=== PATIENT | male | born 1950 | race Caucasian/White ===

== ENCOUNTER 2024-06-08 07:05 | Inpatient (IN) ==
[2024-06-08] MEDS ORDERED: Iohexol 350 (CONTRAST) 200 ML MDV IV ONE (07:12)
[2024-06-08] MEDS ORDERED: nitroGLYCERIN DRIP 25,000 MCG/250 ML BTL ONE (07:12)
[2024-06-08] MEDS ORDERED: Heparin 1,000 UNIT/ML 10 ml (10,000 UNITS) CATHLAB/DIALYSIS ONE (07:12)
[2024-06-08] MEDS ORDERED: VERAPAMIL 2.5 MG/ML 2 ML VIAL ** 5 mg/2 ml ONE (07:12)
[2024-06-08] MEDS ORDERED: Lidocaine 1% MPF 5 ML VIAL ONE (07:12)
[2024-06-08] MEDS ORDERED: Heparin 2 UNITS/ML 1000 mls 0 ML IV ONE (07:17)
[2024-06-08] MEDS ORDERED: fentaNYL 100 mcg/2 ml 50 MCG/ML VIAL ONE ×2 (07:20→08:35)
[2024-06-08] MEDS ORDERED: Midazolam 5 mg/5 ml VIAL 1 mg/ml 5 ml VIAL (5 mg) ONE ×2 (07:20→08:35)
[2024-06-08 07:30] LABS: ABS Basophils 0.1 10^3/uL (0.0-0.1); ABS Eosinophils 0.7 10^3/uL (0.0-0.5); ABS Lymphocytes 1.8 10^3/uL (1.0-4.8); ABS Monocytes 0.6 10^3/uL (0.0-1.1); ABS Neutrophils 3.1 10^3/uL (1.5-7.6); ABS Nucleated RBC 0.01 10^3/ul; Eosinophil % 10.9 %; Hemoglobin 14.8 g/dL (13.2-16.3); Lymphocyte % 28.4 %; Mean Corpuscular Hemoglobin 32.6 pg (27-33); Mean Corpuscular Hgb Conc 34.5 g/dL (31-36); Mean Corpuscular Volume 94.5 fL (80-97); Mean Platelet Volume 8.7 fL (7.5-11.2); Nucleated Red Blood Cells % 0.2 %/100WBC (0.0-0.8); Platelet Count 164 10^3/uL (150-450); Red Blood Count 4.55 10^6/uL (4.06-5.63); Red Cell Distribution Width 13.6 % (12-17); White Blood Count 6.3 10^3/uL (3.6-10.2)
[2024-06-08 07:43] LABS: INR 0.97 (0.85-1.14)
[2024-06-08] MEDS ORDERED: Bivalirudin 250 MG VIAL ONE (07:51)
[2024-06-08 07:52] LABS: Albumin/Globulin Ratio 1.5 (1-3); Calcium 9.4 mg/dL (8.6-10.3); Creatinine, Serum 0.82 mg/dL (0.67-1.17); Globulin 2.6 g/dL (2-4); Potassium 4.1 mmol/L (3.5-5.0); Total Bilirubin 0.5 mg/dL (0.2-1.0); Total Protein 6.6 g/dL (6.4-8.9); eGFR CKD-EPI 93.9 (>60)
[2024-06-08] MEDS: NS 0.9% 1000 ml BAG 1,000 ML IV SCH (08:45)
[2024-06-08 13:13] LABS: HDL Cholesterol 42.9 mg/dL; Magnesium 1.9 mg/dL (1.9-2.7)
[2024-06-08] MEDS: Sulfur Hexaflouride MICROSPHR 25 MG VIAL IV PRN (14:27)
[2024-06-09 04:28] LABS: ABS Basophils 0.1 10^3/uL (0.0-0.1); ABS Eosinophils 0.4 10^3/uL (0.0-0.5); ABS Lymphocytes 1.4 10^3/uL (1.0-4.8); ABS Monocytes 0.8 10^3/uL (0.0-1.1); ABS Neutrophils 5.4 10^3/uL (1.5-7.6); Eosinophil % 5.5 %; Hemoglobin 14.3 g/dL (13.2-16.3); Lymphocyte % 17.4 %; Mean Corpuscular Hemoglobin 32.4 pg (27-33); Mean Corpuscular Hgb Conc 34.8 g/dL (31-36); Mean Corpuscular Volume 93.2 fL (80-97); Mean Platelet Volume 8.7 fL (7.5-11.2); Platelet Count 137 10^3/uL (150-450); Red Cell Distribution Width 13.5 % (12-17); White Blood Count 8.1 10^3/uL (3.6-10.2)
[2024-06-09 05:03] LABS: Albumin 3.8 g/dL (3.2-5.2); Albumin/Globulin Ratio 1.5 (1-3); Calcium 9.2 mg/dL (8.6-10.3); Creatinine, Serum 0.69 mg/dL (0.67-1.17); Globulin 2.6 g/dL (2-4); HDL Cholesterol 41.8 mg/dL; Potassium 4.1 mmol/L (3.5-5.0); Total Bilirubin 0.6 mg/dL (0.2-1.0); Total Protein 6.4 g/dL (6.4-8.9); eGFR CKD-EPI 98.9 (>60)
[2024-06-09 06:45] LABS: Magnesium 1.9 mg/dL (1.9-2.7)
[2024-06-10 06:16] LABS: ABS Eosinophils 0.5 10^3/uL (0.0-0.5); ABS Lymphocytes 1.7 10^3/uL (1.0-4.8); ABS Monocytes 0.9 10^3/uL (0.0-1.1); ABS Neutrophils 3.8 10^3/uL (1.5-7.6); ABS Nucleated RBC 0.01 10^3/ul; Eosinophil % 7.5 %; Hematocrit 42.5 % (38-53); Hemoglobin 14.6 g/dL (13.2-16.3); Lymphocyte % 24.4 %; Mean Corpuscular Hemoglobin 32.6 pg (27-33); Mean Corpuscular Hgb Conc 34.3 g/dL (31-36); Nucleated Red Blood Cells % 0.1 %/100WBC (0.0-0.8); Platelet Count 141 10^3/uL (150-450); Red Blood Count 4.48 10^6/uL (4.06-5.63); Red Cell Distribution Width 13.9 % (12-17); White Blood Count 6.9 10^3/uL (3.6-10.2)
[2024-06-10 06:33] LABS: Calcium 9.2 mg/dL (8.6-10.3); Creatinine, Serum 0.69 mg/dL (0.67-1.17); Potassium 4.2 mmol/L (3.5-5.0); eGFR CKD-EPI 98.9 (>60)
[2024-06-10] MEDS: Influenza Vaccine *TRI* 2024-25* 0.5 ML SYRINGE IM ONE (09:31)
[2024-06-10 09:58] VITALS: BP 127/85
== END 2024-06-10 12:32 | disposition home or self-care (01) | DRG 229 ==
LOC: ED 07:05 → CHICATH 07:33 → MEDTELE 07:40 → ICU 08:42 → MEDTELE 06-09 17:07